=== PATIENT | female | born 1990 | race Hispanic/Latino ===

== ENCOUNTER 2017-06-11 17:05 | Emergency (ER) | payer MEDICAID ==
[2017-06-11 17:58] VITALS: BP 151/90; PULSE 91; RESP 16; TEMP 98.3; O2SAT 100
--- NOTE | 2017-06-11 20:52 | ED PDOC ---
HPI: Headache Time Seen by Provider: 06/11/17 19:41 Chief Complaint (Nursing): Headache Chief Complaint (Provider): Headache History Per: Patient History/Exam Limitations: no limitations Onset/Duration Of Symptoms: Days (x1) Current Symptoms Are (Timing): Still Present Pain Scale Rating Of: 7 Quality: "Pain" Preceeding Symptoms: Known Migraine Symptoms Associated Symptoms: Nausea. denies: Photophobia, Vomiting Additional Complaint(s): 26 year old female with a past medical history of migraine headaches presents to the Ed complaining of a headache which began yesterday when she woke up. Patient states that this headache is similar to previous episodes of migraine headaches she has had in the past. She states that the headache is diffuse and radiates down to her neck and is associated with nausea but no vomiting. Patient reports that she has had migraine headaches since she was a teenager. Denies focal deficits, blurry vision, fever, neck stiffness, photophobia. Patient reports taking ibuprofen and caffeine but they offered no relief of her symptoms. No regular PMD Past Medical History Reviewed: Historical Data, Nursing Documentation, Vital Signs Vital Signs: Last Vital Signs Temp 98.3 F 06/11/17 17:56 Pulse 91 H 06/11/17 17:56 Resp 16 06/11/17 17:56 BP 151/90 H 06/11/17 17:56 Pulse Ox 100 06/11/17 17:56 - Medical History PMH: No Chronic Diseases, Multiple Sclerosis - Surgical History Surgical History: No Surg Hx - Family History Family History: States: Unknown Family Hx - Social History Current smoker - smoking cessation education provided: No Ex-Smoker (has not smoked in the last 12 months): No Alcohol: Social Drugs: Denies - Home Medications Home Medications: Ambulatory Orders Medication Instructions Recorded Acetaminophen/Butalbital/Caf 1 tab PO TID PRN #20 tab 06/11/17 [Fioricet] Ondansetron ODT [Zofran ODT] 1 odt PO Q6 PRN #20 odt 06/11/17 - Allergies Allergies/Adverse Reactions: Allergies Allergy/AdvReac Type Severity Reaction Status Date / Time latex Allergy RASH Verified 06/11/17 17:56 Review of Systems ROS Statement: Except As Marked, All Systems Reviewed And Found Negative Gastrointestinal: Positive for: Nausea. Negative for: Vomiting Neurological: Positive for: Headache (diffuse) Physical Exam - Reviewed Nursing Documentation Reviewed: Yes Vital Signs Reviewed: Yes - Physical Exam Appears: Positive for: Non-toxic, In Acute Distress Head Exam: Positive for: ATRAUMATIC, NORMOCEPHALIC Skin: Positive for: Warm, Dry Eye Exam: Positive for: EOMI, PERRL ENT: Negative for: Pharyngeal Erythema, Tonsillar Exudate Neck: Positive for: Painless ROM, Supple Cardiovascular/Chest: Positive for: Regular Rate, Rhythm, Chest Non Tender. Negative for: Murmur Respiratory: Positive for: Normal Breath Sounds. Negative for: Wheezing Gastrointestinal/Abdominal: Positive for: Soft. Negative for: Tenderness Back: Positive for: Normal Inspection. Negative for: Decreased ROM Extremity: Positive for: Normal ROM. Negative for: Deformity Lymphatic: Negative for: Adenopathy Neurologic/Psych: Positive for: Alert, motion picture camera lens technician II-XII (intact), Oriented (x3), Cerebellar Tests (normal). Negative for: Motor/Sensory Deficits, Aphasia, Facial Droop - Laboratory Results Result Diagrams: 06/11/17 21:10 06/11/17 21:10 - ECG O2 Sat by Pulse Oximetry: 100 (RA) Pulse Ox Interpretation: Normal Medical Decision Making Medical Decision Makin Initial Impression 26 y/o female presenting with migraine headache Differentials: Dehydration, Electrolyte abnormality, Anemia, Tension headache, Stress Initial Plan: * CMP * Magnesium * Phosphorous * Upreg * Udip * CBC * Reglan 10mg IVP * Toradol 30mg IVP * Tylenol 975mg PO * Reevaluation Labs unremarkable Pt feels better. Stable for DC home. Documented by Kylie Peña acting as a scribe for Nicol Ladd MD. All medical record entries made by the Scribe were at my direction and personally dictated by me. I have reviewed the chart and agree that the record accurately reflects my personal performance of the history, physical exam, medical decision making, and the department course for this patient. I have also personally directed, reviewed, and agree with the discharge instructions and disposition. Disposition - Clinical Impression Clinical Impression: Migraine Counseled Patient/Family Regarding: Studies Performed, Diagnosis, Need For Followup, Rx Given - Disposition Referrals: Annalee Carvalho [Outside] Disposition: Routine/Home Disposition Time: 22:25 Condition: IMPROVED Additional Instructions: ANNALEE GRIFFIN and [facility] will be contacting you by Tuesday for reevaluation and to help setup follow up appointments to an appropriate primary care physician and neurologist. Take medications as prescribed for your symptoms. Return to ER for worsening symptoms. Prescriptions: Acetaminophen/Butalbital/Caf [Fioricet] 1 tab PO TID PRN #20 tab PRN Reason: Headache Ondansetron ODT [Zofran ODT] 1 odt PO Q6 PRN #20 odt PRN Reason: Nausea/Vomiting Instructions: Migraine Headache (ED) Forms: Annalee Griffin (Welsh), [facility] ED School/Work Excuse
[2017-06-11 21:19] LABS: BASO # 0.1 K/uL (0.0-0.2); BASO % 0.8 % (0.0-2.0); EOS % 0.4 % (0.0-4.0); HEMOGLOBIN 13.6 g/dL (12.0-16.0); LYMPH # 3.2 K/uL (1.0-4.3); LYMPH % 30.7 % (20.0-40.0); MEAN CELL VOLUME 85.4 fl (81.0-99.0); MEAN CORPUSCULAR HEMOGLOBIN 28.3 pg (27.0-31.0); MEAN CORPUSCULAR HGB CONC 33.1 g/dL (33.0-37.0); MEAN PLATELET VOLUME 7.7 fl (7.2-11.7); MONO # 0.6 K/uL (0.0-0.8); MONO % 5.7 % (0.0-10.0); NEUT # 6.4 K/uL (1.8-7.0); NEUT % 62.4 % (50.0-75.0); NRBC % 0.1 % (0.0-0.0); RBC 4.81 Mil/uL (3.80-5.20); WHITE BLOOD COUNT 10.3 K/uL (4.8-10.8)
[2017-06-11 21:32] LABS: ALB/GLOB RATIO 1.1 (1.0-2.1); ALBUMIN 4.1 g/dL (3.5-5.0); ALT/SGPT 25 U/L (9-52); AST/SGOT 19 U/L (14-36); BLOOD UREA NITROGEN 10 mg/dl (7-17); CALCIUM 10.2 mg/dL (8.4-10.2); GFR AFRICAN-AMERICAN > 60; GFR NON-AFRICAN AMERICAN > 60; MAGNESIUM 2.2 MG/DL (1.6-2.3)
[2017-06-11 23:10] LABS: SQUAMOUS EPITHIAL < 1 /hpf (0-5); URINE BACTERIA RARE (<OCC); URINE BILIRUBIN NEGATIVE (NEGATIVE); URINE BLOOD SMALL (NEGATIVE); URINE CLARITY SLIGHTY-CLOUDY (Clear); URINE COLOR YELLOW (YELLOW); URINE GLUCOSE (UA) NEG (Normal); URINE LEUKOCYTE ESTERASE SMALL Leu/uL (Negative); URINE NITRATE NEGATIVE (NEGATIVE); URINE PROTEIN NEGATIVE (NEGATIVE); URINE UROBILINOGEN 0.2-1.0 mg/dL (0.2-1.0)
== END 2017-06-11 22:40 | disposition home or self-care (01) ==
LOC: H.ER 17:05
DX: G43.909 Migraine, unspecified, not intractable, without status migrainosus (principal)
CPT/HCPCS: 80053; 81003; 81025; 83735; 84100; 85025; 96374; 96375; 99283; J1885; J2765

== ENCOUNTER 2017-06-24 10:38 | Emergency (ER) | payer MEDICAID ==
[2017-06-24 10:57] VITALS: BMI 29.9
[2017-06-24 10:58] VITALS: BP 137/93; PULSE 91; RESP 20; TEMP 97.7; O2SAT 100
--- NOTE | 2017-06-24 12:37 | ED PDOC ---
HPI: Abdomen Time Seen by Provider: 06/24/17 12:12 Chief Complaint (Nursing): GI Problem Chief Complaint (Provider): GI Problem History Per: Patient History/Exam Limitations: no limitations Onset/Duration Of Symptoms: Days (x3) Outside of [place] travel?: No Current Symptoms Are (Timing): Still Present Severity: Mild Pain Scale Rating Of: 3 Quality Of Discomfort: Pressure Associated Symptoms: Nausea Last Bowel Movement: Today Additional Complaint(s): 26 year old female who presents to the emergency department with a complaint of nausea associated with diarrhea, bloating, and decreased appetite ongoing for 3 days. Patient stated nausea is exacerbated with eating and exertion. She further reports that she has self diagnosed herself with IBS and has been taking 2 cap of Miralax daily for the past 3 months. Denies any fever, chills, vomiting, cough, abdominal pain, urinary symptoms, vaginal bleeding, back pain or chest pain. Of note, patient took Zofran 4mg last at 0300 earlier today with little improvement. PMD: none provided Abnormal Vaginal Bleeding: No Past Medical History Reviewed: Historical Data, Nursing Documentation, Vital Signs Vital Signs: Last Vital Signs Temp 97.7 F 06/24/17 10:56 Pulse 91 H 06/24/17 10:56 Resp 20 06/24/17 10:56 BP 137/93 H 06/24/17 10:56 Pulse Ox 100 06/24/17 12:48 - Medical History PMH: Migraine Denies: Diabetes, Chronic Kidney Disease - Surgical History Surgical History: No Surg Hx, Tonsillectomy Other surgeries: knee - Family History Family History: States: Unknown Family Hx - Living Arrangements Living Arrangements: With Family - Social History Current smoker - smoking cessation education provided: No Ex-Smoker (has not smoked in the last 12 months): No Alcohol: Social Drugs: Denies - Home Medications Home Medications: Ambulatory Orders Medication Instructions Recorded Acetaminophen/Butalbital/Caf 1 tab PO TID PRN #20 tab 06/11/17 [Fioricet] Ondansetron ODT [Zofran ODT] 1 odt PO Q6 PRN #20 odt 06/11/17 Metoclopramide HCl [Reglan] 10 mg PO TID PRN #12 tablet 06/24/17 - Allergies Allergies/Adverse Reactions: Allergies Allergy/AdvReac Type Severity Reaction Status Date / Time latex Allergy RASH Verified 06/24/17 11:24 Review of Systems ROS Statement: Except As Marked, All Systems Reviewed And Found Negative Constitutional: Negative for: Fever, Chills Cardiovascular: Negative for: Chest Pain Respiratory: Negative for: Cough Gastrointestinal: Positive for: Nausea, Diarrhea, Other (bloating; decreased appetite). Negative for: Vomiting, Abdominal Pain Genitourinary Female: Negative for: Dysuria, Incontinence, Hematuria, Vaginal Bleeding Musculoskeletal: Negative for: Back Pain Physical Exam - Reviewed Nursing Documentation Reviewed: Yes Vital Signs Reviewed: Yes - Physical Exam Appears: Positive for: Well, Non-toxic, No Acute Distress Head Exam: Positive for: NORMOCEPHALIC Skin: Positive for: Normal Color, Warm, Dry Eye Exam: Positive for: EOMI, PERRL Neck: Positive for: Painless ROM, Supple Cardiovascular/Chest: Positive for: Regular Rate, Rhythm. Negative for: Bradycardia, Tachycardia Respiratory: Positive for: Normal Breath Sounds. Negative for: Decreased Breath Sounds, Accessory Muscle Use, Respiratory Distress Gastrointestinal/Abdominal: Positive for: Bowel Sounds (present in all 4 quadrants), Soft. Negative for: Tenderness, Mass, Distended, Guarding, Rebound Back: Negative for: L CVA Tenderness, R CVA Tenderness, Vertebral Tenderness Extremity: Negative for: Tenderness Neurologic/Psych: Positive for: Alert (x3), Oriented, Gait (steady). Negative for: Aphasia, Facial Droop - Laboratory Results Urine POC: Negative - ECG O2 Sat by Pulse Oximetry: 100 (RA) Pulse Ox Interpretation: Normal Medical Decision Making Medical Decision Making: Initial Impression: Nausea Initial Plan: * Reglan 10mg PO * Urine dipstick * Urine Time: 1220 --UA: negative for , nitrate or glucose. Small bilirubin and trace keytones noted, but otherwise, within normal limits. Time: 1236 --Upon provider evaluation, patient is medically stable and requires no further treatment in the ED at this time. Provider recommended patient to discontinue Miralax due to disruption of normal GI function. Patient will be discharged home with Rx for Reglan 10mg. Counseling was provided and all questions were answered regarding diagnosis and need for follow up with terry cloth cutter hand. Referral provided to patient. There is agreement to discharge plan. Return if symptoms persist or worsen. Clinical Impression: Abdominal bloating; Nausea Scribe Attestation: Documented by Mariela Schafer, acting as a scribe for Madeline Pimentel PA-C. Provider Scribe Attestation: All medical record entries made by the Scribe were at my direction and personally dictated by me. I have reviewed the chart and agree that the record accurately reflects my personal performance of the history, physical exam, medical decision making, and the department course for this patient. I have also personally directed, reviewed, and agree with the discharge instructions and disposition Disposition - Clinical Impression Clinical Impression: Abdominal bloating, Nausea - Patient ED Disposition Is Patient to be Admitted: No Counseled Patient/Family Regarding: Studies Performed, Diagnosis, Need For Followup - Disposition Disposition: Routine/Home Disposition Time: 12:36 Condition: STABLE Additional Instructions: Follow up with GI: Dr. Liam Laguna [address] [facility], [address] [place] [address] Prescriptions: Metoclopramide HCl [Reglan] 10 mg PO TID PRN #12 tablet PRN Reason: Nausea/Vomiting Instructions: Nausea and Vomiting, Adult (DC), Gas and Bloating Forms: [employer] (Wolof) Print Language: TELUGU
== END 2017-06-24 12:53 | disposition home or self-care (01) ==
LOC: H.ER 10:38
DX: R14.0 Abdominal distension (gaseous) (principal); R11.0 Nausea